=== PATIENT | male | born 1995 | race Two or more races ===

== ENCOUNTER 2021-01-24 20:16 | Emergency (ER) | payer BC, OTHER ==
[~2021-01-24] VITALS: Ht 182.9 cm; Wt 128.4 kg
[2021-01-25] MEDS ORDERED: cefTRIAXone SOD 1,000 MG VL IM ONE (02:30)
[2021-01-25 06:45] VITALS: BP 151/90
== END 2021-01-25 03:09 | disposition home or self-care (01) ==
LOC: ER 20:16
DX: J18.9 Pneumonia, unspecified organism (principal); I10 Essential (primary) hypertension; Z20.822 Contact with and (suspected) exposure to COVID-19
CPT/HCPCS: 36415; 71045; 87426; 96372; 99284; J0696